=== PATIENT | male | born 1950 | race Caucasian/White ===

== ENCOUNTER → 2016-12-23 | Outpatient (CLI) | payer OTHER ==
[~2016-12-23] MED LIST: IOHEXOL 180 MG/ML 10 ML VIAL. ONE; MULT-697 PO; NAPR-677 PO; OMEG1CAP6 PO; SERT25TA PO; TIZA2CAP PO; methylPREDNISolone ACETATE 40 MG/ML VIAL. ONE; methylPREDNISolone ACETATE 80 MG/ML VIAL. ONE
--- NOTE | 2016-12-24 02:03 | PAIN ---
DATE OF SERVICE: 12/23/2016 INITIAL CONSULTATION FOR PAIN CLINIC CHIEF COMPLAINT: Low back and left lower extremity pain. HISTORY OF PRESENT ILLNESS: This is a 66-year-old male who presents with history of pain in the low back and left lower extremity for approximately 1 year or so, but much worse over the past 1-2 months. The patient reports no specific injury or accident that he is aware of. It is gradually increasing and getting worse with time. Pain in the low back, radiating to the posterior gluteus, posterolateral thigh, lateral anterior thigh and medial lower leg into just below the knee on the left side. The patient reports some groin pain as well, has a constant, shooting pain in the back and leg radiating in quality, worse with standing, walking, changing positions, walking up stairs. When he is walking downstairs, he reports he has to walk sideways and put 2 feet on each step because of the pain in the left leg. The patient reports it awakens him from sleep about 3 times at night. He is able to reposition and get back to sleep. It is affecting his bowel or bladder control, he believes it makes more urgency, but no actual incontinence noted and affecting his ability to walk significantly. The patient is not using any assistive devices; however, he is just holding on the guard rails, frias and cars ____ that are near him when he is ambulating. The patient reports no loss of motor function, but significant pain and fatigability of the left leg compared to the right. The patient did have an MRI of the lumbar spine in the past, reported showing degenerative disk disease. The patient also has CT scan of abdomen and pelvis looking at the hip showing right hip unremarkable and mild degenerative changes of sacroiliac joints, right greater than left with good preservation of smooth articular surfaces of the left hip joint and the right hip joint. The patient rates his disability rating from 0-10, 10 being the worst, a 5 with family and home responsibilities, social activity, 0 with recreation, 7 with occupation, 3 with sexual behavior, 4 self care and 7 with life support activities. The patient has not had any other therapies at this time except doing some stretching on his own, no formal physical therapies, no formal chiropractic work or other treatment. PAST MEDICAL HISTORY: Significant for COPD, hearing loss, wearing bilateral hearing aids, emphysema, asthma, diarrhea, nausea, dizziness, headaches, previous TIAs, arthritis. PREVIOUS SURGERIES: Include cataract extraction in 2017, bilateral knee replacements in 2011 and 2012, Achilles tendon repair in 2006, fracture of the foot in 2001 and a chest tube for fractured ribs in the distant past. CURRENT MEDICATIONS: Include naproxen, tizanidine, sertraline, fish oil and Centrum vitamins daily. ALLERGIES: The patient has no known drug allergies. SOCIAL HISTORY: Positive for patient with no smoking history. Does not drink alcohol. He is single. Reports he is currently retired, lives on his own in [place], [place]. FAMILY HISTORY: Significant for no major medical problems or conditions that he is aware of. REVIEW OF SYSTEMS: The patient's review of systems is positive for those items mentioned in history of present illness. All systems reviewed and otherwise negative. It is complete, full and well documented on the patient's chart. PHYSICAL EXAMINATION: VITAL SIGNS: Today, the patient's blood pressure is 136/84, pulse is 71, respirations 18, temperature 98.3 degrees Fahrenheit, height is 5 feet 8 inches, weight is 219 pounds. GENERAL: The patient is awake, alert, oriented, appropriate, is a very pleasant demeanor. HEENT: Head shows normocephalic, atraumatic. Extraocular movements are intact and symmetrical. Oral cavity shows mucous membranes moist and pink. Dentition is intact. NECK: Shows anterior throat supple without palpable lymphadenopathy noted. Swallow reflex is symmetrical. CHEST: Shows normal on inspection. Breath sounds clear to auscultation bilaterally. HEART: Shows S1 and S2 clear. No murmurs auscultated. ABDOMEN: Obese, soft, nontender, nondistended. No palpable organomegaly is noted. No rebound or guarding demonstrated. MUSCULOSKELETAL: Back shows spine grossly in the midline. Slight exaggeration of thoracic kyphosis, mild flattening of lumbar lordotic curvature. No previous bruises, lesions, rashes or scars are noted throughout the thoracic, lumbar spine. Paraspinous musculature shows symmetrical on inspection. With palpation in the lumbar distribution shows some moderate tenderness, but only in the lower lumbar distribution, slightly more on the left than the right, but no tenderness over the spinous processes, sacrum or sacroiliac regions; with posterosuperior iliac spine shows full rotational motion of the lumbar spine, both laterally greater than 10 degrees right and left as well as extension greater than 10 degrees, forward flexion 45 degrees without exacerbation of pain. The patient's lower extremities show deep tendon reflexes at 2+ in the patellar, 1+ tendo-calcaneus tendons, are equal. The patient has well-healed surgical scars over each knee from knee replacement. Motor exam is strong with 5/5 dorsiflexion, extension, quadriceps and hamstring flexion and symmetrical. Peripheral pulses are 1+ posterior tibial and dorsalis pedis pulses. No peripheral edema is noted. No clubbing, no cyanosis. Lower extremities are warm and dry to touch, equal in color and appearance. Straight leg raise positive on the left at 35 degrees, right is negative. Decreased with knee flexion, but not completely relieved with pain into the posterior gluteus, posterolateral and anterior thigh on the left side at 35 degrees. [place] and Josemanuel maneuvers are negative bilaterally. The patient is able to stand, stand on his toes without significant difficulty walking, has a significant limping gait favoring the left lower extremity significantly, not using any assistive devices such as canes or walkers again to ambulate. IMPRESSION: 1. This is a 66-year-old male with a history of low back pain increasing over the past 2 months or so with the radicular pain in the left lower extremity. 2. Previous lumbar films showing degenerative disk changes, L4-L5 and L5-S1. 3. Hypertension. 4. Arthritis. 5. Hearing loss. PLAN: Options were discussed with the patient including conservative medical management, physical therapy, interventional techniques and he would like to pursue interventional techniques. We discussed a lumbar epidural steroid injection using description as well as anatomical models to describe the procedure. Risks were then discussed including, but not limited to bleeding, infection, possibility of epidural hematoma and subsequent neurologic compromise, dural puncture, headaches, spinal cord and/or nerve damage, side effects of steroid medication and poor results regarding pain control. The patient understands and wishes to proceed. The patient will return to clinic in approximately 2 weeks for followup, was counseled on return appointment, activity level and side effects to be aware of. DIAGNOSIS: Lumbar radiculopathy with lumbar degenerative disease. PROCEDURE: Lumbar epidural steroid injection, translaminar approach, at the L4-L5 level using C-arm fluoroscopic guidance under sterile prep and drape using local anesthetic. MEDICATIONS INJECTED: A total of 120 mg Depo-Medrol plus 10 mL preservative-free normal saline and 2 mL Isovue for contrast. CONDITION AT DISCHARGE: Stable. The patient tolerated procedure well, had no complications. SABRINA ESQUIVEL MD DR: DERRICK/tj JOB#: [id number] / [id number]
== END | disposition home or self-care (01) ==
LOC: PNCL 09:05
DX: M51.16 Intervertebral disc disorders with radiculopathy, lumbar region (principal); M51.37 Other intervertebral disc degeneration, lumbosacral region; I10 Essential (primary) hypertension; J44.9 Chronic obstructive pulmonary disease, unspecified; M79.605 Pain in left leg; Z96.653 Presence of artificial knee joint, bilateral; Z86.73 Personal history of transient ischemic attack (TIA), and cerebral infarction without residual deficits
CPT/HCPCS: 62323; J1030; J1040

== ENCOUNTER → 2016-12-31 | Outpatient (CLI) | payer OTHER ==
--- NOTE | 2016-12-31 18:14 | PAIN ---
DATE OF SERVICE: 12/31/2016 DIAGNOSES: Lumbar radiculopathy with lumbar degenerative disk disease. HISTORY OF PRESENT ILLNESS: The patient is an 66-year-old male who returns for followup status post lumbar epidural steroid injection x 1. The patient reports about 50% improvement in the low back and left lower extremity. The patient reports back is doing much better, feels very good, still pain in the left lateral aspect of the thigh; however, into the medial thigh and the knee into the lower leg medially to some extent as well, occasionally radiating all the way down to his leg into the lower leg and to the front of the calf and ankle, but only very rarely. The patient reports this usually happens when he is walking upstairs or putting all his weight on his left leg. The patient reports it is sharp shooting, radiating, rates it 9 on a scale of 10 at its worst, 8 on average, 6 on a scale of 10 at its least, 6 on a scale of 10 today. The patient reports no new motor or sensory deficits, no new bowel or bladder incontinence or other complaints. He sleeps well at night, feels much better with sitting or lying down, worse with pain walking, standing, climbing stairs. PHYSICAL EXAMINATION: VITAL SIGNS: The patient's blood pressure 145/81, pulse 88, respirations 18, temperature 98.2 degrees Fahrenheit, height is 5 feet 8 inches, weight is 219 pounds. GENERAL: The patient is awake, alert, oriented, appropriate, very pleasant demeanor. HEENT: Head shows normocephalic, atraumatic. Extraocular movements are intact, symmetrical. The patient wears eye glasses. Oral cavity, mucous membranes are moist and pink. Dentition is intact. NECK: Shows anterior throat supple without palpable lymphadenopathy noted. Swallow reflex is symmetrical. CHEST: Shows normal on inspection. Breath sounds clear to auscultation bilaterally. HEART: Shows S1 and S2 clear. ABDOMEN: Soft, nontender, nondistended. No palpable organomegaly, no rebound or guarding demonstrated. BACK: Shows spine grossly midline. Lumbar paraspinous muscle shows symmetrical with inspection. On palpation shows some mild tenderness in the lower lumbar distribution, but only mildly and only diffusely without radiation. EXTREMITIES: The patient's lower extremities showed deep tendon reflexes at 2+ in the patellar, 1+ in tendo-calcaneus tendons and are equal. Motor exam is strong with 5/5 dorsiflexion, extension, quadriceps and hamstring. Flexion equal as well. Peripheral pulses are 1+ posterior tibia. No peripheral edema is noted. Options were discussed with the patient and the patient's old chart was reviewed as his current medication regimen updated. Current review of systems updated today as well. We will proceed with a second lumbar epidural steroid injection today with fluoroscopic guidance. Risks were again discussed including, but not limited to bleeding, infection, possibility of epidural hematoma, subsequent neurologic compromise, dural puncture, headaches, spinal cord and/or nerve damage, side effects of steroid medication and poor results regarding pain control. The patient understands and wishes to proceed. The patient will return to clinic in approximately 2 weeks for followup, was counseled on return appointment, activity level and side effects to be aware of. DIAGNOSIS: Lumbar radiculopathy with lumbar degenerative disk disease. PROCEDURE: Lumbar epidural steroid injection in translaminar approach at the L4-L5 level using C-arm fluoroscopic guidance under sterile prep and drape using local anesthetic. Medication injected a total of 120 mg Depo-Medrol plus 10 mL preservative-free normal saline, 2 mL Isovue for contrast. CONDITION AT DISCHARGE: Stable. The patient tolerated procedure well, had no complications. SABRINA ESQUIVEL MD DR: DERRICK/tj JOB#: [id number] / [id number]
== END | disposition home or self-care (01) ==
LOC: PNCL 12:55
PROVIDERS: ATTEND Anesthesiology
DX: M51.16 Intervertebral disc disorders with radiculopathy, lumbar region (principal)
CPT/HCPCS: 62323; J1030; J1040

== ENCOUNTER → 2019-01-26 | Outpatient (CLI) | payer MEDICARE, OTHER ==
[~2019-01-26] MED LIST changes: -IOHEXOL 180 MG/ML 10 ML VIAL. ONE; -methylPREDNISolone ACETATE 40 MG/ML VIAL. ONE; -methylPREDNISolone ACETATE 80 MG/ML VIAL. ONE
[2019-01-26 10:00] LABS: BASO % 1 % (0-3); EOS # 0.1 x10^3/uL (0.0-0.7); EOS % 1 % (0-3); HEMATOCRIT 45.3 % (39.0-53.0); HEMOGLOBIN 15.7 g/dL (13.0-17.5); LYMPH # 1.2 x10^3/uL (1.0-4.8); LYMPH % 23 % (24-48); MEAN CORPUSCULAR HEMOGLOBIN 34 pg (25-35); MEAN CORPUSCULAR HGB CONC 35 g/dL (31-37); MEAN CORPUSCULAR VOLUME 99 fL (79-100); MONO # 0.8 x10^3/uL (0.0-1.1); MONO % 15 % (0-9); NEUT # 3.3 x10^3/uL (1.8-7.7); NEUT % 61 % (31-73); PLATELET COUNT 159 x10^3/uL (140-400); RED CELL DISTRIBUTION WIDTH 13.6 % (11.5-14.5); WHITE BLOOD COUNT 5.4 x10^3/uL (4.0-11.0)
[2019-01-26 10:05] LABS: ALBUMIN 3.6 g/dL (3.4-5.0); ALBUMIN/GLOBULIN RATIO 0.9 (1.0-1.7); BARBITURATES NEG (NEG); BENZODIAZEPINES NEG (NEG); CALCIUM 8.6 mg/dL (8.5-10.1); CANNABINOIDS NEG (NEG); COCAINE NEG (NEG); CREATININE 0.7 mg/dL (0.7-1.3); GFR 111.8; METHADONE NEG (NEG); OPIATES NEG (NEG); PHENCYCLIDINE NEG (NEG); POTASSIUM 4.1 mmol/L (3.5-5.1); TOTAL BILIRUBIN 0.9 mg/dL (0.2-1.0); TOTAL PROTEIN 7.7 g/dL (6.4-8.2)
[2019-01-26 10:07] LABS: AMPHETAMINE/METHAMPHETAMINE NEG (NEG); CHOLESTEROL/HDL RATIO 3.2
== END | disposition home or self-care (01) ==
LOC: LAB 09:30
PROVIDERS: ATTEND Psychiatry & Neurology Neurology
DX: R41.3 Other amnesia (principal); I10 Essential (primary) hypertension; J44.9 Chronic obstructive pulmonary disease, unspecified; Z96.653 Presence of artificial knee joint, bilateral; Z79.899 Other long term (current) drug therapy
CPT/HCPCS: 36415; 80053; 80061; 80307; 82607; 84443; 85025

== ENCOUNTER → 2019-04-28 | Outpatient (CLI) | payer MEDICARE, OTHER ==
--- NOTE | 2019-04-28 19:49 | EEG ---
DATE OF SERVICE: 04/28/2019 EEG NUMBER: [id number]. OBJECTIVE: This is a 69-year-old male patient with a history of memory loss. EEG was requested to evaluate cerebral activity. METHODS: Twenty electrodes were applied according to the international 10-20 electrode placement system. EKG monitoring, hyperventilation, intermittent photic stimulation, monopolar and bipolar montages are routinely utilized. The record was obtained on a digital system with video monitoring. FINDINGS: 1. Background: The patient was recorded in the awake, drowsy, and sleep states. The overall background amplitude is 10-20 microvolts. A posterior dominant rhythm of 8 Hz is observed. 2. Abnormalities: No specific epileptiform discharge or electrographic seizure is seen. No focal or diffuse slowing. 3. Activation: Hyperventilation was not performed. Intermittent photic stimulation was performed with photic driving. IMPRESSION: This EEG is a normal study for the awake and drowsy states. No actual sleep state was recorded. No focal, lateralizing, specific epileptiform discharge or electrographic seizure is seen. DAWN GUILLEN MD DR: STONE/tj JOB#: [id number] / [id number]
== END | disposition home or self-care (01) ==
LOC: RT 10:08
PROVIDERS: ATTEND Psychiatry & Neurology Neurology
DX: R41.3 Other amnesia (principal)
CPT/HCPCS: 95816